=== PATIENT | female | born 1985 | race Caucasian/White ===

== ENCOUNTER 2018-04-03 23:27 | Emergency (ER) | payer BC ==
[~2018-04-03] VITALS: Ht 162.6 cm; Wt 63.0 kg
[2018-04-03 23:44] VITALS: BP_SYST 124
[2018-04-04] MEDS ORDERED: SULFAMETHOXAZOLE/TRIMETHOPR DS 1 TABLET PO ONE (01:45)
[2018-04-04] MEDS ORDERED: CEPHALEXIN 500 MG CAPSULE PO ONE (01:45)
[2018-04-04 02:01] VITALS: BP_SYST 124
== END 2018-04-04 02:01 | disposition home or self-care (01) ==
LOC: SED 23:27
DX: L03.114 Cellulitis of left upper limb (principal); R03.0 Elevated blood-pressure reading, without diagnosis of hypertension; Z88.0 Allergy status to penicillin; Z88.6 Allergy status to analgesic agent
CPT/HCPCS: 81025; 99283

== ENCOUNTER 2020-03-14 22:55 | Emergency (ER) | payer BC ==
[~2020-03-14] VITALS: Ht 162.6 cm; Wt 68.0 kg
[2020-03-14 23:15] VITALS: BP_SYST 120
--- NOTE | 2020-03-14 23:15 | NUR ---
PT IS AAO AND AMBULATORY C/O TOOTHACHE 1 WEEK AND A HALF AND PT REPORTS SHE IS CURRENTLY TAKING PRESCRIBED ANTIBIOTICS.
--- NOTE | 2020-03-15 00:05 | NUR ---
PT CALLED AND NO ANSWER IN LOBBY. WILL CALL AGAIN.
[2020-03-15 01:00] VITALS: BP_SYST 120
== END 2020-03-15 01:00 | disposition left against medical advice (07) ==
LOC: SED 22:55
DX: K08.89 Other specified disorders of teeth and supporting structures (principal); Z53.21 Procedure and treatment not carried out due to patient leaving prior to being seen by health care provider